=== PATIENT | male | born 1980 | race Caucasian/White ===

== ENCOUNTER 2017-04-27 14:38 | Outpatient (CLI) | payer OTHER ==
[2017-04-27 15:19] LABS: eGFR (African) > 60; eGFR (Non-African) > 60
[2017-04-28 11:07] LABS: ADENOVIRUS F 40/41 Not Detected (Not Detected); ASTROVIRUS Not Detected (Not Detected); C. DIFFICILE (TOXIN A/B) Not Detected (Not Detected); CRYPTOSPORIDIUM Not Detected (Not Detected); CYCLOSPORA CAYETANENSIS Not Detected (Not Detected); ENTAMOEBA HISTOLYTICA Not Detected (Not Detected); GIARDIA LAMBLIA Not Detected (Not Detected); ROTAVIRUS A Not Detected (Not Detected); SAPOVIRUS Positive (Not Detected); VIBRIO CHOLERAE Not Detected (Not Detected)
== END 2017-04-27 14:40 ==
LOC: LAB 14:38
PROVIDERS: ATTEND Family Medicine
DX: R19.7 Diarrhea, unspecified (principal)
CPT/HCPCS: 36415; 80053; 87507

== ENCOUNTER 2017-04-28 09:08 | Outpatient (CLI) | payer OTHER ==
[2017-04-28 09:52] LABS: eGFR (African) > 60; eGFR (Non-African) > 60
== END 2017-04-28 09:10 ==
LOC: LAB 09:08
PROVIDERS: ATTEND Family Medicine
DX: R79.89 Other specified abnormal findings of blood chemistry (principal)
CPT/HCPCS: 36415; 80053; 80074

== ENCOUNTER 2017-04-29 07:45 | Outpatient (CLI) | payer OTHER ==
--- NOTE | 2017-04-29 09:11 | Diagnostic Imaging Report ---
ROSE MARY JENSEN [facility] [address] [facility] [address] [place] [address]. [id number] Report Submission Date: Apr 29, 2017 8:48:27 AM CASER Patient Study Name: JADE HURTADO Date: Apr 29, 2017 7:58:47 AM CASER Modality Type: US Gender: M Description: US ABD LIMITED : 76 Institution: [facility] Physician: ROSE MARY JENSEN Examination: Ultrasound gallbladder History: ELEVATED LFT'S (Hx) Findings: Sonographic evaluation of the right upper quadrant demonstrates the gallbladder without stones or sludge. Gallbladder wall generally measures 2.0 mm. Common bile duct measures 4.3 mm. No intrahepatic biliary dilation. Small area of what appears to be pericholecystic fluid. Liver demonstrates increased mildly inhomogeneous echogenicity. No mass or cyst. Normal flow on color analysis. Normal portal vein Doppler waveforms. Right kidney measures 11.2 cm in length. No cortical mass or cyst. No hydronephrosis. Pancreatic region without gross irregularity. Impression: No gallstone or obstruction. Small amount of pericholecystic fluid - nonspecific finding: possibly reactive. Follow as warranted. Fatty liver. Electronically signed on Apr 29, 2017 8:48:27 AM CASER by: Hunter RICHARDSON
== END 2017-04-29 07:46 ==
LOC: RAD 07:45
PROVIDERS: ATTEND Family Medicine
DX: R79.89 Other specified abnormal findings of blood chemistry (principal)
CPT/HCPCS: 76705